=== PATIENT | male | born 1950 | race Caucasian/White ===

== ENCOUNTER 2020-11-27 09:05 | Outpatient (CLI) | payer OTHER, MEDICARE, SELFPAY | END 2020-11-27 09:06 | disposition home or self-care (01) | PROVIDERS: PCP Internal Medicine | DX: Z23 Encounter for immunization (principal) | CPT/HCPCS: 0001A; 91300 ==

== ENCOUNTER 2020-12-18 08:41 | Outpatient (CLI) | payer OTHER, MEDICARE, SELFPAY | END 2020-12-18 08:42 | disposition home or self-care (01) | LOC: ANHCOVIDVC 08:41 | PROVIDERS: PCP Internal Medicine | DX: Z23 Encounter for immunization (principal) | CPT/HCPCS: 0002A; 91300 ==

== ENCOUNTER → 2021-04-27 10:21 | Outpatient (CLI) | payer OTHER, SELFPAY ==
--- NOTE | ~2021-04-27 | MR_ITS ---
EXAMINATION: MR lumbar spine wo con DATE: 04/27/2021 11:06 INDICATION: Lumbar radiculopathy. TECHNIQUE: Magnetic resonance imaging (MRI) of the lumbar spine was performed without intravenous con trast. Sequences included sagittal T2-weighted FSE, sagittal T2-weighted FS FSE, sagittal T1-weighted FSE, and axial T2-weighted FSE. COMPARISON: Lumbar spine MRI 06/20/15 FINDINGS: There is 10 degrees levoscoliosis of lumbar spine. There are chronic bilateral L5 pars defe cts. There is 4 mm retrolisthesis of L1 on L2 and L2 on L3, 4 mm anterolisthesis of L4 on L5, and 6 m m anterolisthesis of L5 on S1. There is severely decreased disc height from L1-L2 through L5-S1 with endplate remodeling. The distal spinal cord signal intensity is normal. The conus medullaris is at L1 . The following disc levels are specifically discussed: T11-T12: There is a left central and subarticular zone extrusion. There is severe right and moderate left facet joint osteoarthritis. There is no neural foraminal stenosis. There is mild central canal s tenosis with ventral indentation of the spinal cord. There is moderate stenosis of left lateral reces s. T12-L1: The disc does not extend beyond the endplate margin. There is moderate right and severe left facet joint osteoarthritis. There is mild left neural foraminal stenosis. There is no central canal s tenosis. L1-L2: The disc is bulging and has an annular fissure. There is severe bilateral facet joint osteoart hritis. There is mild right and moderate left neural foraminal stenosis. There is mild central canal stenosis. L2-L3: The disc is bulging and has an annular fissure. There is a superimposed right central extrusio n. There is severe bilateral facet joint osteoarthritis. There is moderate right and mild left neural foraminal stenosis. There is moderate central canal stenosis. L3-L4: The disc is bulging and has an annular fissure. There is severe bilateral facet joint osteoart hritis. There is moderate right and mild left neural foraminal stenosis. There is mild central canal stenosis. L4-L5: The disc is bulging and has an annular fissure. There is severe bilateral facet joint osteoart hritis. There is mild right and moderate left neural foraminal stenosis. There is mild central canal stenosis. L5-S1: The disc does not extend beyond the endplate margin. There is moderate bilateral facet joint o steoarthritis. There is mild bilateral neural foraminal stenosis. There is no central canal stenosis. IMPRESSION: 1. Severe lumbar spondylosis, worsened from 06/20/2015. 2. Chronic bilateral L5 pars defects with grade 1 anterolisthesis of L5 on S1. 3. Lumbar levoscoliosis. Reviewed, dictated and finalized at location A.
== END ==
PROVIDERS: PCP Internal Medicine; Visit Provider Nurse Practitioner Adult Health
DX: M54.16 Radiculopathy, lumbar region (principal); M47.816 Spondylosis without myelopathy or radiculopathy, lumbar region; M43.17 Spondylolisthesis, lumbosacral region; M41.86 Other forms of scoliosis, lumbar region
CPT/HCPCS: 72148

== ENCOUNTER → 2021-05-06 08:25 | Outpatient (CLI) | payer OTHER, SELFPAY ==
--- NOTE | ~2021-05-06 | XR_ITS ---
EXAMINATION: XR knee LT min 4V DATE: 05/06/2021 08:50 INDICATION: Left knee pain. TECHNIQUE: 4 views of left knee were obtained. COMPARISON: Left knee radiographs 05/30/2013 FINDINGS: Bone alignment is normal. No fracture. There is severe osteoarthritis of medial compartment , mild osteoarthritis of lateral compartment, and moderate osteoarthritis of patellofemoral compartme nt. There is a small knee joint effusion. IMPRESSION: 1. Severe left knee osteoarthritis. 2. Small left knee joint effusion. Reviewed, dictated and finalized at location A.
--- NOTE | ~2021-05-06 | XR_ITS ---
EXAMINATION: XR knee RT min 4V DATE: 05/06/2021 08:50 INDICATION: Right knee pain. TECHNIQUE: 4 views of right knee including standing views were obtained. COMPARISON: Right knee radiographs 05/30/2013 FINDINGS: There is varus angulation at the knee. There is lateral subluxation of patella. No fracture . There is severe osteoarthritis of medial compartment and mild osteoarthritis of lateral and patello femoral compartments. There is a small knee joint effusion. IMPRESSION: 1. Severe right knee osteoarthritis. Reviewed, dictated and finalized at location A.
== END ==
PROVIDERS: PCP Internal Medicine; Visit Provider Nurse Practitioner Adult Health
DX: M17.0 Bilateral primary osteoarthritis of knee (principal); M25.462 Effusion, left knee; M25.461 Effusion, right knee
CPT/HCPCS: 73564

== ENCOUNTER 2021-05-20 08:30 | Outpatient (CLI) | payer OTHER, SELFPAY ==
--- NOTE | ~2021-05-20 | NM_ITS ---
EXAMINATION: NM domo stress w perfusion DATE: 05/20/2021 12:53 INDICATION: Dyspnea on exertion. TECHNIQUE: Rest images were obtained following intravenous administration of 9.69 mCi Tc99m tetrofosm in (Myoview). The patient was infused intravenously with Lexiscan (regadenoson). Then, 31.9 mCi Tc99m tetrofosmin (Myoview) was administered intravenously, and stress images were obtained. Data was parisa nstructed into short axis and horizontal and vertical long axis SPECT images. Gated SPECT images were also obtained. COMPARISON: None. FINDINGS: There is no definite reversible or fixed perfusion abnormality to suggest ischemia or infar ction. There is no segmental wall motion abnormality. Left ventricular ejection fraction measures > 70%. IMPRESSION: 1. No definite ischemia or infarct. 2. Normal left ventricular ejection fraction measuring >70%. Reviewed, dictated and finalized at location A.
--- NOTE | 2021-05-20 08:51 | ECHO_ITS ---
Patient Info Name: Wilda Haider Age: 70 years : 1950 Gender: Male Ht: 69 in Wt: 275 lbs BSA: 2.52 m2 HR: 79 bpm BP: 155 / 98 mmHg Heart Rhythm: Sinus Rhythm Exam Date: 05/20/2021 9:14 AM Exam Location: [facility] Patient Status: Outpatient Admit Date: 05/20/2021 Staff Ordering Physician: Jayden Carter DO Enterostomal Therapy Nurse: Mary Gonzalez RDCS Attending Provider: Jayden Carter DO Exam Type: CA echo doppler color flow Study Info Complete two-dimensional, color flow and Doppler transthoracic echocardiogram is performed. Summary 1. Complete two-dimensional, color flow and Doppler transthoracic echocardiogram is performed. 2. Left ventricular chamber dimension is normal. 3. Left ventricular systolic function is normal, estimated at 55-60%. 4. There is mildly increased left ventricular wall thickness. 5. The left ventricular diastolic function is grade I diastolic dysfunction. 6. E/e' 8 is minimally elevated. 7. There is moderate aortic valve sclerosis. 8. There is mild aortic valve stenosis with a peak velocity of 144 cm/s, mean gradient of 5 mmHg, and aortic valve area of 1.5 cm2. 9. The aortic root size at the sinus of Valsalva is mildly dilated at 4.2 cm. Left Ventricle E/e' 8 is minimally elevated. Left ventricular chamber dimension is normal. Left ventricular systolic function is normal, estimated at 55-60%. There is mildly increased left ventricular wall thickness. The left ventricular diastolic function is grade I diastolic dysfunction. Right Ventricle Right ventricular chamber dimension is normal. Right ventricular systolic function is normal. Left Atria Left atrial chamber dimension is normal. Right Atria Right atrial chamber dimension is normal. Aortic Valve The aortic valve is trileaflet. There is moderate aortic valve sclerosis. There is mild aortic valve stenosis with a peak velocity of 144 cm/s, mean gradient of 5 mmHg, and aortic valve area of 1.5 cm2. There is no aortic valve regurgitation. Pulmonic Valve There is no pulmonic regurgitation. Mitral Valve There is no mitral valve stenosis. There is no mitral valve regurgitation. Tricuspid Valve There is no tricuspid valve regurgitation. Pericardium/Pleural There is no pericardial effusion. Inferior Vena Cava Inferior vena cava is not well visualized. Aorta The aortic root size at the sinus of Valsalva is mildly dilated at 4.2 cm. Left Ventricular Outflow Tract Name Value Normal LVOT 2D LVOT Diameter 1.7 cm LVOT Doppler LVOT Peak Gradient 4 mmHg LVOT Mean Gradient 2 mmHg LVOT VTI 20 cm LVOT VTI/AV VTI Ratio 0.7 LVOT Stroke Volume 47 ml LVOT CO 3.4 l/min LVOT CI 1.3 l/min/m2 Pulmonic Valve Name Value Normal
--- NOTE | 2021-05-20 08:51 | EST_ITS ---
Patient Info Name: Wilda Haider Age: 70 years : 1950 Gender: Male Ht: 69 in Wt: 275 lbs BSA: 2.52 m2 Exam Date: 05/20/2021 11:05 AM Exam Location: [facility] Stress Patient Status: Outpatient Admit Date: 05/20/2021 Staff Ordering Physician: Jayden Carter DO Attending Provider: Jayden Carter DO Exercise Technologist: Devyn Gabriel RDCS, RT Exercise Physician: Jayden Carter DO Exam Type: CA stress domo w NM Study Info A regadenoson stress test was performed. Summary 1. 1. Negative lexiscan stress test for ischemic ST changes by ECG criteria. 2. 2. Baseline hypertension. 3. 3. Nuclear scan to follow and will be reported separately. Please correlate with it. 4. 4. Patient informed of the above results. Protocol: Lexiscan Stress ECG Details Stage: REST Duration (min): 2 min : 49 sec HR (bpm): 76 SBP (mmHg): 148 DBP (mmHg): 94 Stage: REST Duration (min): 20 min : 27 sec HR (bpm): 77 SBP (mmHg): 148 DBP (mmHg): 94 Stage: STAGE 1 Duration (min): 1 min : 0 sec HR (bpm): 84 SBP (mmHg): 166 DBP (mmHg): 99 Stage: RECOVERY Duration (min): 1 min : 0 sec HR (bpm): 86 SBP (mmHg): 166 DBP (mmHg): 99 Stage: RECOVERY Duration (min): 2 min : 0 sec HR (bpm): 84 SBP (mmHg): 166 DBP (mmHg): 99 Stage: RECOVERY Duration (min): 3 min : 0 sec HR (bpm): 82 SBP (mmHg): 157 DBP (mmHg): 96 Stage: RECOVERY Duration (min): 3 min : 26 sec HR (bpm): 82 SBP (mmHg): 157 DBP (mmHg): 96 Rest HR: 77 bpm Peak HR: 91 bpm Rest Sys BP: 148 mmHg Peak Sys BP: 166 mmHg Max Pred HR: 149 bpm % Max Pred HR: 61 % Target HR: 127 bpm Max RPP: 15,106 bpm*mmHg Termination Reason: Completed protocol Cardiac Symptoms: Shortness of breath, Upset stomach Total Time: 1 min : 0 sec Rest Fletcher BP: 94 mmHg Peak Fletcher BP: 99 mmHg Total Dose: 0.4 mg Resting ECG Sinus rhythm, first degree AV block, RBBB. Stress ECG No ST changes. Arrhythmias None. Report Signatures
== END 2021-05-20 08:31 | disposition home or self-care (01) ==
PROVIDERS: PCP Internal Medicine; Visit Provider Internal Medicine Cardiovascular Disease
DX: R06.02 Shortness of breath (principal); I35.8 Other nonrheumatic aortic valve disorders
CPT/HCPCS: 78452; 93017; 93306; A9502; J2785

== ENCOUNTER → 2022-03-08 08:30 | Outpatient (CLI) | payer OTHER, SELFPAY ==
--- NOTE | ~2022-03-08 | XR_ITS ---
XR lumbar spine min 4V DATE: 03/08/2022 09:21 INDICATION: Lumbar stenosis TECHNIQUE: Standing AP, lateral and coned lateral lumbosacral views. Standing flexion and extension l ateral views. COMPARISON: None FINDINGS: There is dextroscoliosis of the thoracic and upper lumbar spine. There is 6 mm grade 1 anterolisthesis at L4-5 and flexion and neutral position, reduced to 4 mm in ex tension. There is degenerative change at the apophyseal joints of the mid and lower lumbar and lumbos acral area. There is severe degenerative disc disease throughout the lumbar and lower cervical spine. The included lower thoracic and lumbar pedicles are intact. No fracture or bone destruction is eviden t. The sacroiliac joints are intact. Status post right total hip arthroplasty. Abdominal aortic and iliac arterial calcifications. IMPRESSION: Dextroscoliosis of thoracolumbar spine Osteopenia Severe degenerative disc disease of lumbar and lumbosacral spine Degenerative change at the apophyseal joints Grade 1 anterolisthesis at L4-5, measuring up to 6 mm in flexion and neutral, reduced to 4 mm in exte nsion Reviewed, dictated and finalized at location A. IMPRESSION: Dextroscoliosis of thoracolumbar spine Osteopenia Severe degenerative disc disease of lumbar and lumbosacral spine Degenerative change at the apophyseal joints Grade 1 anterolisthesis at L4-5, measuring up to 6 mm in flexion and neutral, r educed to 4 mm in extension
--- NOTE | ~2022-03-08 | MR_ITS ---
EXAMINATION: MR lumbar spine wo con DATE: 03/08/2022 08:58 INDICATION: Lumbar spondylosis. Low back pain. Bilateral leg pain. TECHNIQUE: Magnetic resonance imaging (MRI) of the lumbar spine was performed without intravenous con trast. Sequences included sagittal T2-weighted FSE, sagittal T2-weighted FS FSE, sagittal T1-weighted FSE, and axial T2-weighted FSE. COMPARISON: Lumbar spine MRI 04/27/2021 FINDINGS: There is 13 degrees levoscoliosis of lumbar spine. There are chronic bilateral L5 pars defe cts. There is 5 mm retrolisthesis of L1 on L2, 3 mm anterolisthesis of L4 on L5, and 5 mm anterolisth esis of L5 on S1. There is mildly decreased disc height at T12-L1, severely decreased disc height fro m L1-L2 through L3-L4, and moderately decreased disc height at L4-L5 and L5-S1 with endplate remodeli ng. Epidural lipomatosis is noted. There is ligamentum flavum hypertrophy at the disc levels from T12 -L1 through L3-L4. The distal spinal cord signal intensity is normal. The conus medullaris is at L1. The following disc levels are specifically discussed: T12-L1: There is a central extrusion. There is moderate right and severe left facet joint osteoarthri tis. There is mild left neural foraminal stenosis. There is mild central canal stenosis. L1-L2: The disc is bulging and has an annular fissure. There is severe bilateral facet joint osteoart hritis. There is mild right and moderate left neural foraminal stenosis. There is mild central canal stenosis. L2-L3: The disc is bulging and has an annular fissure. There is severe bilateral facet joint osteoart hritis. There is moderate right and mild left neural foraminal stenosis. There is moderate central ca nal stenosis. L3-L4: The disc is bulging and has an annular fissure. There is severe bilateral facet joint osteoart hritis. There is moderate right and mild left neural foraminal stenosis. There is mild central canal stenosis. L4-L5: The disc is bulging and has an annular fissure. There is severe bilateral facet joint osteoart hritis. There is mild right and moderate left neural foraminal stenosis. There is mild central canal stenosis. L5-S1: The disc is bulging and has an annular fissure. There is severe bilateral facet joint osteoart hritis. There is mild bilateral neural foraminal stenosis. There is no central canal stenosis. IMPRESSION: 1. Severe lumbar spondylosis, stable from 04/27/2021. 2. Chronic bilateral L5 pars defects with grade 1 anterolisthesis of L5 on S1. 3. Lumbar levoscoliosis. Reviewed, dictated and finalized at location B.
== END ==
PROVIDERS: PCP Internal Medicine; Visit Provider Neurological Surgery
DX: M47.815 Spondylosis without myelopathy or radiculopathy, thoracolumbar region (principal); M48.05 Spinal stenosis, thoracolumbar region; M47.817 Spondylosis without myelopathy or radiculopathy, lumbosacral region; M48.07 Spinal stenosis, lumbosacral region; M41.9 Scoliosis, unspecified
CPT/HCPCS: 72110; 72148

== ENCOUNTER 2022-04-16 09:20 | Outpatient (CLI) | payer OTHER, SELFPAY | END 2022-04-16 09:21 | disposition home or self-care (01) | PROVIDERS: PCP Family Medicine; Visit Provider Neurological Surgery | DX: Z01.812 Encounter for preprocedural laboratory examination (principal); D17.79 Benign lipomatous neoplasm of other sites | CPT/HCPCS: 36415; 86850; 86900; 86901 ==

== ENCOUNTER 2022-04-17 08:28 | Outpatient (CLI) | payer OTHER, SELFPAY ==
--- NOTE | 2022-04-17 09:58 | ECG_ITS ---
Measurements Intervals [place] Rate: 91 P: 40 MN: 210 QRS: -43 QRSD: 138 T: -24 QT: 377 QTc: 466 Interpretive Statements SINUS RHYTHM WITH FIRST DEGREE AV BLOCK VENTRICULAR COUPLETS BORDERLINE AV CONDUCTION DELAY RIGHT BUNDLE BRANCH BLOCK INFERIOR INFARCT, AGE INDETERMINATE BASELINE ARTIFACT- II ABNORMAL ECG Electronically Signed On 04-17-2022 16:55:39 CDT by Jayden Carter D.O.
[2022-04-17 10:22] LABS: Basophils Absolute Auto 0.1 K/mm3 (0.0-0.1); Basophils Percent Auto 0.9 % (0.2-1.2); Eosinophils Absolute Auto 0.6 K/mm3 (0-0.3); Eosinophils Percent Auto 5.3 % (0-4.4); Hematocrit 46.5 % (42.0-52.0); Immature Granulocyte Absolute 0.08 K/mm3 (0.00-0.031); Immature Granulocyte Percent A 0.7 % (0-0.5); Lymphocytes Absolute Auto 2.59 K/mm3 (0.9-3.2); Lymphocytes Percent Auto 21.5 % (18.3-44.2); Mean Corpuscular HGB Conc 34.4 g/dl (32-36); Mean Corpuscular Hemoglobin 34.9 pg (26-34); Mean Corpuscular Volume 101.5 fl (80-100); Mean Platelet Volume 10.5 fl (7.4-10.4); Monocytes Absolute Auto 1.1 K/mm3 (0.1-0.6); Monocytes Percent Auto 9.1 % (2.6-8.5); Neutrophils Absolute Auto 7.6 K/mm3 (1.3-6.7); Neutrophils Percent Auto 62.5 % (45.5-73.1); Platelet Count Result 221 k/mm3 (150-375); Red Blood Count 4.58 M/mm3 (4.6-6.20); Red Cell Distribution Width 14.5 % (11.5-14.5); White Blood Count 12.1 K/mm3 (4.5-10.0)
[2022-04-17 10:29] LABS: Mucus Urine Few /lpf; RBC Urine 0-2 /hpf (0-2); Squamous Epithelial Cell Urine Rare /hpf (Few)
[2022-04-17 10:31] LABS: Appearance Urine Clear (Clear); Bilirubin Urine 1+ (Negative); Blood Urine Negative (Negative); Glucose Urine UA Negative (Negative); Ketones Urine Trace mg/dL (Negative); Leukocyte Esterase Ur Trace LEU/UL (Negative); Nitrate Urine Negative (Negative); Protein Urine 2+ mg/dL (Negative)
[2022-04-17 10:32] LABS: INR 1.1; Prothrombin Time 13.3 Seconds (11.1-14.7)
[2022-04-17 10:33] LABS: Partial Thromboplastin Time 27.3 SECONDS (22.3-36.8)
[2022-04-17 10:35] LABS: Alanine Aminotransferase 32 U/L (6-50); Albumin Level 4.4 g/dL (3.5-5.1); Alkaline Phosphatase 85 U/L (38-126); Anion Gap 7 mmol/L (8-16); Aspartate Amino Transferase 41 U/L (17-59); Bilirubin,Total 1.1 mg/dL (0.2-1.3); Blood Urea Nitrogen 17 mg/dL (9-20); Calcium 9.1 mg/dL (8.4-10.2); Carbon Dioxide 27 mmol/L (22-30); Chloride 103 mmol/L (98-107); Estimated Glomerular Filt Rate > 60; Glucose 100 mg/dL (65-110); Potassium 4.6 mmol/L (3.4-5.0); Sodium 137 mmol/L (137-145)
[2022-04-17 10:38] LABS: Add Urine Microscopic? YES; Color Urine Dark Yellow (Yellow)
== END 2022-04-17 08:29 | disposition home or self-care (01) ==
PROVIDERS: PCP Family Medicine; Visit Provider Neurological Surgery
DX: Z01.818 Encounter for other preprocedural examination (principal); I44.0 Atrioventricular block, first degree; I45.9 Conduction disorder, unspecified; I45.10 Unspecified right bundle-branch block
CPT/HCPCS: 36415; 80053; 81001; 85025; 85610; 85730; 93005

== ENCOUNTER 2022-04-21 00:54 | Day surgery (SDC) | payer OTHER, SELFPAY ==
--- NOTE | 2022-04-15 15:40 | PC.NURSE ---
Report to the Outpatient Waiting Room, entrance under the green pavilion located off [facility], at time 0730 on date _04/21/22 . OR Time: __929 . - You and your visitor will be asked a series of questions to screen for COVID 19 for your protection. - Only one visitor is allowed at this time. - The patient visitor is requested to leave or wait in car when not with patient. - A mask is required within the hospital. Patients may have clear liquids (water, carbonated beverages, clear teas, apple juice) until 3 hours prior to surgery with a maximum of 20 ounces. - No food from midnight until time of surgery - Infants may have breast milk until 4 hours before surgery, infant formula 6 hours prior to surgery. - Children will be allowed to drink immediately following surgery. If applicable, please bring a bottle or sippy cup to assist with drinking. Juice, water, soda, and popsicles are readily available. For infants on formula, please bring formula the day of surgery. Pacifiers are allowed. Take the following medications with a SIP of water the morning of surgery: ____AMLODIPINE,FLUOXETINE Medications to discontinue per physician ___PT STATES ASPIRIN AND NAPROXEN 7 DAYS PRE OP PER DR CARRANZA. ALL VITAMINS AND SUPPLEMENTS 3 DAYS PRE OP Date to take last dose__ASPIRIN/NAPROXEN 04/13/22 ALL VITAMINS AND SUPP 04/17/22 Please no make-up, nail slovak, hairspray, perfume, deodorant, or body powder the day of surgery. No jewelry (including any body piercings) or valuables the day of surgery, leave them at home. Please take a shower or bath the night before, or the morning of, surgery with an antibacterial soap. Wear comfortable, loose fitting clothing. Children are encouraged to wear pajamas. - Jewelry must be removed prior to entering the operating room. Rings and piercings that are not removed may be cut off. - The hospital will not accept responsibility for valuables. - Please leave all valuables, including medications, at home the day of surgery. If you are going home after surgery, a licensed school bus driver/teacher assistant must drive you home. - NO public transportation without another adult. - We recommend that an adult stay with you for 24 hours following discharge. - We also recommend that you do not drive, make important decision, drink alcoholic beverages, or take any drugs that were not prescribed by your health care provider for at least 24 hours after your discharge time. For Pediatric surgeries, we recommend two adults accompany the child home (only one inside the building at this time). Follow any additional instructions given to you from your surgeon. If you or anyone in your household have experienced Covid symptoms in the past week, please notify your surgeon or the nurse liaison at the phone number below for possible testing. Telephone instructions given to __PATIENT and asked if any additional questions and then verbalized understanding. Patient advised to call surgeon office or pre surgery nurse liaison [phone] if any additional questions.
[2022-04-15 15:49] VITALS: BMI 41.1
--- NOTE | 2022-04-20 14:45 | WPDANESEPPF ---
Anes - Initial Pre Proc Eval Procedure: Operation Date: 04/21/22 09:30 Proposed Procedures p Lumbar Laminectomy L2-3, L3-4 with Removal of Epidural Lipomatosis - Radha Lai MD Date/Time: 04/20/22 14:45 Surgeon: Radha Lai MD Pre Op Diagnosis: epidural lipomatosis Patient Data Age: 71 Gender: M Height: 1.73 m Weight: 122.5 kg Allergies Allergy/AdvReac Type Severity Reaction Status Date / Time No Known Allergies Allergy Unknown Verified 04/21/22 07:51 Home Medications Medication Instructions Recorded Confirmed Type naproxen 500 mg tablet 500 mg PO BID #180 tabs 02/05/21 04/21/22 Rx amlodipine 5 mg tablet 5 mg PO DAILY #90 tabs 05/01/21 04/21/22 Rx allopurinol 300 mg tablet 300 mg PO DAILY #90 tabs 07/13/21 04/21/22 Rx lisinopril 10 mg tablet 10 mg PO DAILY #90 tabs 07/13/21 04/21/22 Rx fluoxetine 20 mg capsule 20 mg PO BID #180 caps 07/20/21 04/21/22 Rx simvastatin 40 mg tablet 40 mg PO DAILY #90 tabs 10/30/21 04/21/22 Rx aspirin 325 mg capsule 325 mg PO DAILY 04/15/22 04/21/22 History cholecalciferol (vitamin D3) 50 25 mcg PO DAILY 04/15/22 04/21/22 History mcg (2,000 unit) tablet multivitamin 1 tablet PO DAILY 04/15/22 04/21/22 History vitamin B complex 1 cap PO DAILY 04/15/22 04/21/22 History Patient hx anesthesia problems: none Family hx anesthesia problems: none Results Review: All pre-operative results and documents have been reviewed as part of the pre-operative evaluation. [facility] Past Medical History Medical History (Updated 04/20/22 @ 14:47 by Sage Ga MD) WANG (dyspnea on exertion) Enlarged prostate without lower urinary tract symptoms (luts) Epidural lipomatosis Essential (primary) hypertension FH: bariatric surgery GERD (gastroesophageal reflux disease) Idiopathic chronic gout, unspecified site, without tophus (tophi) Lumbar stenosis Major depression in remission Major depressive disorder, recurrent, moderate Mixed hyperlipidemia Morbid obesity Obstructive sleep apnea (adult) (pediatric) Osteoarthrosis, generalized, involving multiple sites Unspecified hearing loss Surgical History Surgical History (Updated 04/20/22 @ 14:47 by Sage Ga MD) History of hip replacement S/P hip replacement Family History Family History Mother Cerebrovascular accident Grandparent Family history of malignant neoplasm Family history of emphysema Family history of heart disease in male family member before age 55 Father Family history of diabetes mellitus in first degree relative Family history of heart disease in male family member before age 55 Social History Social History Smoking packs per day: 2 Smoking cigarettes per day: 40.0 Years smoked: 12 Smoking pack-years: 24.00 Smoking status: Former smoker Tobacco type: cigarettes, pipe and cigars Second hand tobacco smoke exposure: No Smoking end date: 09/26/79 Alcohol intake: current Drinks per week: 4 Alcohol use details: occasionally, rum, wine Substance use: current Substance use type: marijuana Other substance usage details: medical marijuana, for pain management Last use: 04/14/22 Living arrangements: with family Spiritual care concerns: No Anes - Eval Final PreProcedure Day of Procedure 04/20/22 14:45 Patient weight: obese Heart: regular rate and rhythm Lungs: clear to auscultation and normal air movement Airway: Mallampati scale class II Neurological: alert and oriented Last oral intake: >/= 8 hours ASA classification: III Emergent: no Anesthetic plan: proceed Anesthesia type and monitoring: general ETT Results Review: All pre-operative results and documents have been reviewed as part of the pre-operative evaluation. Informed Consent: The patient's anesthetic plan and its attendant risks and benefits were discussed with the patient/family/POA
[2022-04-21] VITALS (14 sets, daily range): BP systolic 133–162; BP diastolic 65–92; PULSE 79–107; RESP 16–24; TEMP 35.8–37.1; O2SAT 92–98
--- NOTE | ~2022-04-21 | XR_ITS ---
EXAMINATION: XR fluoroscopy no charge DATE: 04/21/2022 10:20 INDICATION: Lumbar L2-L4 laminectomy TECHNIQUE: 2 fluoroscopic images of the dorsal spine were obtained during procedure performed by Dr. Lai. Radiologist was not present for the imaging or procedure. The amount of fluoroscopy time used during this procedure was 0.1 minutes. COMPARISON: 03/08/2022 FINDINGS: Lumbar spondylosis with multilevel moderate to severe disc height loss. Second image demonstrates tis jean retractors projecting over the region of the L2-L4 spinous processes which are obscured by the re tractors. IMPRESSION: 1. Fluoroscopy utilized during reported L2-L4 laminectomies with severe lumbar spondylosis. See proce dure note for further detail. Reviewed, dictated and finalized at location A. IMPRESSION: 1. Fluoroscopy utilized during reported L2-L4 laminectomies with severe lumbar spondylosis. See procedure note for further detail.
[2022-04-21] MEDS: LACTATED RINGERS 1,000 ML 30 ML IV CONT ×2 (08:44→11:42)
--- NOTE | 2022-04-21 09:33 | WPDHPUPDATE1 ---
History and Physical Update Update Date/Time: 04/21/22 09:33 History and Physical has been reviewed, including an updated exam of the patient. There are NO changes in the patient's condition. Risks, benefits, and alternatives have been discussed and questions answered. Patient agrees to proceed with procedure. Plan is for lumbar decompression L2-3 and L3-4 for spinal stenosis and epidural lipomatosis
[2022-04-21] MEDS: ceFAZolin 3 GM/D5W 100 ML 100 ML IVPB ×2 (09:40→21:28)
[2022-04-21] MEDS: LIDO 1%/EPINEPHRINE 1:100,000 10 ML VIAL INFILTRATE (10:09)
[2022-04-21] MEDS: BUPIVACAINE HCL 0.5% PF 30 ML VIAL 10 ML INFILTRATE (10:09)
[2022-04-21] MEDS: VANCOMYCIN HCL 1,000 MG VIAL 1000 MG TOPICAL (10:29)
--- NOTE | 2022-04-21 11:24 | W.PM.PROC2 ---
Procedure Note - Detailed Date of Procedure 04/21/22 Pre-op Diagnosis epidural lipomatosis and spinal stenosis Post-op Diagnosis Same Procedure Performed Lumbar decompression with laminectomy and foraminotomies, L2-3 and L3-4 with removal of epidural lipomatosis Surgeon Radha Lai MD Indications Mr. Haider is a very pleasant 71 year old male who presents with claudicatory and raidcular low back and lower extremity pain in the setting of spinal stenosis with epidural lipomatosis most pronounced at L2-3 and L3-4. He has not responded durably to non surgical measures and presents for lumbar decompression L2-3 and L3-4. Please see my office note for extended documentation as to discussions of risks indications and recovery from surgery. Description of Procedure The patient was brought into the operating room where general anesthesia was induced.? Appropriate monitoring was obtained.? The patient was turned into a prone position on the Jac table with a Cl frame.? Extremeties were padded.? The patient was secured to the table.? Localization was performed using intraoperative fluoroscopy and the L2-3 and L3-4 level was identified. The patient's back was prepped and draped sterilely.? A surgical time out was performed.? The planned incision was infused with local anesthetic.? The incision was made using a #10 skin blade.? Hemostasis was achieved. Self retaining retractors were placed and advanced.? The L2 and L3 and L4 spinous proceeses were identified and the muscle was dissected off of the spinous process and lamina of L2 and L3 using bovie electrocautery.? Self retaining retractors were advanced. Attention was first turned to the L3-4 level.? A curette was placed under the L2 and L3 lamina and the L3-4 level was confirmed again using intraoperative fluoroscopy.? The spinous process of both L2 and L3 was removed using a rongeur.? The lamina was drilled using a high speed neetu drill with a matchstick tip.? The lamina was drilled lateral to the level of the facet complex until, inferiorly, ligament was visible.? The lamina was thinned and then dissected from the lamina using a curette.? The remaining lamina and medial facet at L3-4 were removed with kerossen punches.? The ligament was then carefully dissected away from the thecal sac and removed using kerossen punches.? The foramen at L3 and L4 were drilled and dissected / decompressed using the kerossen punches. Attention was then turned to the L2-3 level.? ? The lamina was drilled using a high speed neetu drill with a matchstick tip.? The lamina was drilled lateral to the level of the facet complex until, inferiorly, ligament was visible.? The lamina was thinned and then dissected from the lamina using a curette.? The remaining lamina and medial facet at L3-4 were removed with kerossen punches.? The ligament was then carefully dissected away from the thecal sac and removed using kerossen punches.? The foramen at L2 and L3 were drilled and dissected / decompressed using the kerossen punches. The superior aspect of the L3 lamina was removed using the kerossen punch and after the completion of the decompression the canal was patent from L2-L4. There was copious epidural lipomatosis at, in particular, the L2-3 level, and this was meticulously dissected away from the thecal sac in the dorsal epidural space as well as the lateral recesses. At the completion of the decompression the central canal and neural foramen were patent on the right and the left at L2, L3 and L4. The wound was irrigated and hemostasis was achieved.? Self retaining retractors were removed and the muscle and fascia were closed using interrupted 0 vicryl suture.? The soft tissue was closed using 2-0 vicryl suture. The dermis was closed using 3-0 vicryl suture.? The skin was closed with surgical charlette.? 20cc of 0.5% bupivicaine was infused prior to skin closure. I was present for the entirety of the procedure.? All counts were correct. At t
[2022-04-21] MEDS: fentaNYL CITRATE INJ (*CRX) 100 MCG/2 ML VIAL 25 MCG IV PUSH ×2 (12:40→12:50)
--- NOTE | 2022-04-21 13:20 | ADMGEN ---
This patient, Wilda Haider, was admitted to Medical Room 245-. Patient/family oriented to hospital policies and general routines including ID bracelet, bed and alarms, visiting hours, pain management, procedures, bathroom and other care routines, personal items, smoking policy, room service/diet, and visiting hours. Information on how to activate the Rapid Response Team has been discussed. Patient/Family are encouraged to report perceived risks to care and to ask questions if they do not understand what they are told or what they should do.
[2022-04-21] MEDS: HYDROcodone/acetaminophen (*CRX) 10-325 MG TABLET 1 TAB PO ×2 (15:24→20:36)
--- NOTE | 2022-04-21 15:37 | PCRCNOTE ---
Pt. wears CPAP at home; spoke with Pt. about wearing one of our machines while here. Pt. declined stating he hasn't been wearing his lately and doesn't want to mess with it tonight. Asked Pt. to call if he changed his mind. Froylan. notified.
[2022-04-21] MEDS: FLUoxetine HCL 20 MG CAPSULE PO (16:21)
[2022-04-21] MEDS: DOCUSATE SODIUM 100 MG CAPSULE PO (21:29)
[2022-04-22] MEDS: HYDROcodone/acetaminophen (*CRX) 10-325 MG TABLET 1 TAB PO (01:26)
[2022-04-22 04:05] VITALS: BP 134/75; PULSE 73; RESP 20; TEMP 36.7; O2SAT 90
--- NOTE | 2022-04-22 07:56 | WPDANESPN ---
Anes - Prog Note Post-Op Date/Time: 04/22/22 07:56 Cardiovascular status: normal Respiratory status: normal Airway patency: baseline Mental status: baseline Post-Op hydration status: normal Vital Signs: Last Vital Signs Temp 36.7 C 04/22/22 04:05 Pulse 73 04/22/22 04:05 Resp 20 04/22/22 04:05 BP 134/75 04/22/22 04:05 Pulse Ox 90 04/22/22 04:05 O2 Del Method Room Air 04/21/22 15:36 O2 Flow Rate 1 04/21/22 14:59 Pain Score (VAS): 2 I/O: Intake & Output 04/21/22 04/21/22 04/22/22 15:59 23:59 07:59 Intake Total 1700 350 390 Output Total 30 1050 Balance 1670 350 -660 Post-procedural complaints: none Patient Feedback: Patient satisfied with anesthetic care.
[2022-04-22] MEDS: ceFAZolin 3 GM/D5W 100 ML 100 ML IVPB (08:55)
[2022-04-22] MEDS: allopurinoL 300 MG TABLET PO (08:55)
[2022-04-22] MEDS: amLODIPine BESYLATE 5 MG TABLET PO (08:56)
[2022-04-22] MEDS: CHOLECALCIFEROL 1,000 UNITS TABLET 2000 UNITS PO (08:56)
[2022-04-22] MEDS: lisinopriL 10 MG TABLET PO (08:57)
[2022-04-22] MEDS: FLUoxetine HCL 20 MG CAPSULE PO (08:57)
[2022-04-22] MEDS: SIMVASTATIN 20 MG TABLET 40 MG PO (08:57)
--- NOTE | 2022-04-22 09:26 | PM.DS ---
DS: Admitting Diagnosis Discharge Date 04/22/2022 Admitting Diagnosis lumbar stenosis, spinal lipomatosis DS: Summary Hospital Course Reason for hospitalization: the patient is a 71-year-old male with neurogenic claudication secondary to spinal stenosis partially secondary to spinal lipomatosis who presents for decompression. Hospital Course: The patient was taken to the operating room on 04/21/2022 with the aforementioned operation was performed without complication. Patient went to the floor postoperatively. By postoperative day 1 he was eating, ambulating and emptying his bladder and his pain was under control with by mouth pain medicine. His wound remained clean dry and intact. He was afebrile with stable vital signs. He was therefore like to be discharged home. Time Spent with Patient Time attestation: Total time spent providing and/or coordinating discharge services: Exam Narrative: Strength is 5/5 in all muscle groups of the bilateral lower extremities, Sensation is intact to light touch throughout the lower extremities Dressing is clean dry and intact Discharge Plan Discharge Patient Disposition: Home, Self-Care Discharge Instructions: INSTRUCTIONS AFTER YOUR LUMBAR LAMINECTOMY/DECOMPRESSION/FORAMINOTOMY/DISCECTOMY Incisions may be closed with either: Steri-strips (let them wear off on their own). Surgical glue (let it peel off on its own). Sutures or charlette (call the office for an appointment to have these removed). Keep the incision dry for the first three days after surgery. Never apply ointments or lotions to the incision. The incision should be checked daily. Notify the office if there is drainage, redness, or if you have fever with a temperature of over 100 degrees. After the third postop day, it is okay to shower. Let soap and water run over your incision. No soaking in a tub, hot tub, or pool for at least one month. You are encouraged to walk as much as comfortable, with assistance as needed. For example, it may be beneficial to walk short distances hourly during the waking hours and gradually increase walking during your recovery period. Fatigue can be common. Avoid any bending, heavy lifting, twisting movements. You have an [id number]-pound lift restriction until further advised by your physician (A gallon of milk weighs eight pounds). Make frequent position changes, avoiding long periods of sitting. Try not to sit more than 30 minutes at a time. You may engage in sexual activity in two weeks as tolerated. No housework, especially vacuuming, making beds, or doing laundry until seen in the office. You may walk stairs carefully. Minimize car rides for two weeks. Driving can usually be resumed within two weeks; however, you may not drive at that time if still taking pain medications. Once you are discharged from the hospital, please call the office to set up your postop appointment. The physician may order pain medication and/or muscle relaxers. As time goes by, you should require less of these. Always take your medication as ordered, and only if needed. If you take more than prescribed, it will not be refilled early. If you feel you require narcotic medication refill, kindly give the office a 72-hour notice. No refills are given over the weekend. Anti-inflammatory meds (like Ibuprofen, Aleve, Advil, Motrin) may be used if approved by your surgeon. Over the counter Tylenol products may be used but use caution mixing Tylenol with your pain medication. The common pain pills include Acetaminophen as an ingredient, you could cause liver damage if taking too much. Tylenol and Acetaminophen are the same drug. Resume your usual diet. Constipation is a common problem postop, especially when taking narcotic pain medications. You may use any over the counter laxative, or stool softener, following the bottle directions. Use of nicotine products should be stopped completely. Smoking can slow the healing pro
== END 2022-04-22 10:21 | disposition home or self-care (01) ==
LOC: ANHSURGERY 07:27 → ANH2MED 13:34
PROVIDERS: PCP Family Medicine; Visit Provider Neurological Surgery
PROC: (CPT 63005; principal; 2022-04-21 09:30)
DX: M48.062 Spinal stenosis, lumbar region with neurogenic claudication (principal); D17.79 Benign lipomatous neoplasm of other sites; I10 Essential (primary) hypertension; E78.2 Mixed hyperlipidemia; N40.0 Benign prostatic hyperplasia without lower urinary tract symptoms; K21.9 Gastro-esophageal reflux disease without esophagitis; M1A.00X0 Idiopathic chronic gout, unspecified site, without tophus (tophi); F33.1 Major depressive disorder, recurrent, moderate; G47.33 Obstructive sleep apnea (adult) (pediatric); M15.9 Polyosteoarthritis, unspecified; Z79.82 Long term (current) use of aspirin; Z87.891 Personal history of nicotine dependence; F12.90 Cannabis use, unspecified, uncomplicated; E66.9 Obesity, unspecified; Z68.41 Body mass index [BMI] 40.0-44.9, adult
CPT/HCPCS: 63047; 63048; 63267; 36415; 80053; 81001; 85025; 85610; 85730; 86850; 86900; 86901; 93005; 97110; 97161; 97530; 99199; A9270; J0690; J1100; J2405; J2704; J3010; J3370; J7120

== ENCOUNTER → 2022-08-02 09:20 | Outpatient (CLI) | payer OTHER, SELFPAY ==
--- NOTE | ~2022-08-02 | XR_ITS ---
EXAMINATION: XR lumbar spine 2-3V DATE: 08/02/2022 09:31 INDICATION: Changes of L2-L4 laminectomy TECHNIQUE: Anteroposterior and lateral views of the lumbar spine, and cone-down lateral view of the l umbosacral junction were obtained. COMPARISON: 03/08/2022 FINDINGS: Changes of interval laminectomy are noted from L2 through L4. There is no fracture. There a re 3 mm of stable anterolisthesis of L4 on L5 and L5 on S1. The vertebral body heights are maintained . There is severe loss of intervertebral disc space height throughout the lumbar spine. Degenerative osteophytes project from the anterior endplates of multiple vertebral bodies. There is moderate facet osteoarthritis. Changes of right total hip arthroplasty are noted. The bowel gas pattern is normal. Calcified atherosclerosis is noted. IMPRESSION: 1. Changes of interval laminectomy from L2 through L4 and severe lumbar spondylosis without acute fin dings. Reviewed, dictated and finalized at location B. D [employer] O[employer] IMPRESSION: 1. Changes of interval laminectomy from L2 through L4 and severe lumbar spondyl osis without acute findings.
== END ==
PROVIDERS: PCP Family Medicine; Visit Provider Neurological Surgery
DX: M54.50 Low back pain, unspecified (principal); Z98.1 Arthrodesis status; M43.06 Spondylolysis, lumbar region
CPT/HCPCS: 72100